=== PATIENT | female | born 1980 | race African-American/Black ===

== ENCOUNTER 2023-12-26 19:15 | Emergency (ER) | payer MEDICAID ==
[~2023-12-26] VITALS: Ht 175.3 cm; Wt 63.5 kg
[2023-12-26 19:40] VITALS: TEMP 98
[2023-12-26] MEDS: IV NS 0.9% 1,000 ML BAG IV ONE (20:07)
[2023-12-26 20:08] LABS: BASOPHILS % (AUTO) 0.8 % (0.0-2.0); EOSINOPHILS # (AUTO) 0.1 K/uL (0.0-0.7); EOSINOPHILS % (AUTO) 2.1 % (0.0-6.0); HEMATOCRIT 30 % (33-45); HEMOGLOBIN 10.7 g/dL (11.5-14.8); LYMPHOCYTES # (AUTO) 1.4 K/uL (0.8-4.8); LYMPHOCYTES % (AUTO) 27.2 % (20.0-44.0); MEAN CORPUSCULAR HEMOGLOBIN 31 PG (26.0-33.0); MEAN CORPUSCULAR HGB CONC 36 g/dl (31.0-36.0); MEAN CORPUSCULAR VOLUME 86 fL (82-100); MONOCYTES # (AUTO) 0.4 K/uL (0.1-1.30); MONOCYTES % (AUTO) 7.3 % (2.0-12.0); NEUTROPHILS # (AUTO) 3.2 K/uL (1.8-8.9); NEUTROPHILS % (AUTO) 62.6 % (43.0-81.0); PLATELET COUNT (AUTO) 177 K/uL (150-450); RED CELL DISTRIBUTION WIDTH 15.2 % (11.5-15.0); WHITE BLOOD COUNT (AUTO) 5.1 K/uL (4.3-11.0)
[2023-12-26 20:09] LABS: APPEARANCE,URINE CLEAR (CLEAR); BILIRUBIN,URINE NEGATIVE (NEGATIVE); BLOOD, URINE NEGATIVE Ery/uL (NEGATIVE); COLOR,URINE YELLOW (YELLOW); KETONES,URINE NEGATIVE (NEGATIVE); LEUKOCYTE ESTERASE ,URINE NEGATIVE (NEGATIVE); NITRITE, URINE NEGATIVE (NEGATIVE); PH,URINE 7.5 (5.0-8.0); PROTEIN,URINE NEGATIVE (NEGATIVE); UGLUCOSE NEGATIVE (NEGATIVE)
[2023-12-26 20:11] LABS: PREGNANCY TEST URINE QUAL NEGATIVE (NEGATIVE)
[2023-12-26 20:21] VITALS: BP 132/85; O2SAT 100
[2023-12-26 20:22] LABS: INR 1.15 (0.91-1.10); PARTIAL THROMBOPLASTIN TIME 29.8 SEC (24.3-34.3); PROTHROMBIN TIME 12.1 SECS (9.2-11.1)
[2023-12-26 20:29] LABS: ALBUMIN 3.8 g/dL (3.4-5.0); BILIRUBIN,DIRECT 0.2 mg/dL (0.0-0.2); BILIRUBIN,TOTAL 3.4 mg/dL (0.2-1.0); CALCIUM, SERUM 8.5 mg/dL (8.5-10.1); CREATININE 0.9 mg/dL (0.6-1.3); POTASSIUM 3.7 mmol/L (3.5-5.1); TOTAL PROTEIN, SERUM 8.1 g/dL (6.4-8.2)
[2023-12-26] MEDS ORDERED: IBUP-1953 PO (21:27)
== END 2023-12-26 21:43 | disposition home or self-care (01) ==
LOC: ER 19:15
DX: K80.20 Calculus of gallbladder without cholecystitis without obstruction (principal); E80.6 Other disorders of bilirubin metabolism; K64.8 Other hemorrhoids; Z60.2 Problems related to living alone
CPT/HCPCS: 99284; 96360; 76705; 85025; 80048; 83690; 80076; 84703; 81003; 36415; 85730; J7030